=== PATIENT | female | born 1945 | race Native Hawaiian/Other Pacific Islander ===

== ENCOUNTER 2019-07-11 17:33 | Emergency (ER) | payer OTHER ==
[~2019-07-11] VITALS: Ht 165.1 cm; Wt 88.9 kg
[2019-07-11 18:08] LABS: PLATELET COUNT 334 K/uL (152-353)
[2019-07-11 18:14] LABS: POTASSIUM 2.7 mmol/L (3.6-5.2)
[2019-07-11 19:35] VITALS: BP 129/77; TEMP 98
[2019-07-11] MEDS ORDERED: ASPIRIN LOW81 MG PO (22:50)
[2019-07-11] MEDS ORDERED: PANTOPRAZOLE 40MG TA PO (22:50)
[2019-07-11] MEDS ORDERED: POTASSIUM CHLO20 ME2 PO (22:51)
[2019-07-11] MEDS ORDERED: SPIRONOLACT50 MG PO (22:52)
[2019-07-11] MEDS ORDERED: LORA0.5T17 PO (22:53)
[2019-07-11] MEDS ORDERED: FURO80TA4 PO (22:53)
[2019-07-11] MEDS ORDERED: METO-837 PO (22:55)
[2019-07-11] MEDS ORDERED: CARDIZEM60 MG PO (22:56)
[2019-07-11] MEDS ORDERED: ALBUTEROL0.083 % INH ×2 (22:57→23:07)
[2019-07-11] MEDS ORDERED: IPRASOL5 INH ×2 (22:58→23:00)
[2019-07-11] MEDS ORDERED: XARELTO20 MG PO (23:02)
[2019-07-11] MEDS ORDERED: SEROQUEL100 MG PO (23:03)
[2019-07-11] MEDS ORDERED: TRESIBA FL100 UNIT/M SC (23:03)
[2019-07-11] MEDS ORDERED: FLORANE1 PO (23:05)
[2019-07-11] MEDS ORDERED: SITA50TA2 PO (23:05)
[2019-07-11] MEDS ORDERED: ONDA4TAB3 PO (23:07)
[2019-07-11] MEDS ORDERED: LORA1TAB17 PO (23:09)
[2019-07-11] MEDS ORDERED: CRANBERR5 PO (23:10)
[2019-07-11] MEDS ORDERED: PENTOXIFYLLINE400 M1 PO (23:13)
[2019-07-11] MEDS ORDERED: RIVADIS TOP (23:16)
== END 2019-07-11 19:39 ==
LOC: ED 17:44
PROVIDERS: Family Medicine
DX: F20.0 Paranoid schizophrenia (principal); F03.91 Unspecified dementia, unspecified severity, with behavioral disturbance; Z04.6 Encounter for general psychiatric examination, requested by authority
CPT/HCPCS: 80053; 81000; 85027; 87077; 87086; 87088; 87186; 93005; 99283